=== PATIENT | male | born 1965 | race Caucasian/White ===

== ENCOUNTER 2019-02-28 03:06 | Emergency (ER) | payer BC ==
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
[~2019-02-28 03:06] MED LIST: Bacitracin Oint 1 GM U/D Packet TOP ONE; Diphtheria,Pertussis(Acell),Tetanus Vaccine 0.5 ML SDV IM ONE; Lidocaine 1% 30 ML SDV INJECT ONE
[2019-02-28] MEDS ORDERED: Acetaminophen 325 MG Tab PO ONE (03:55)
== END 2019-02-28 04:11 | disposition home or self-care (01) ==
LOC: DL.ED 03:06
DX: S01.112A Laceration without foreign body of left eyelid and periocular area, initial encounter (principal); Y08.89XA Assault by other specified means, initial encounter; Y93.89 Activity, other specified; Y92.89 Other specified places as the place of occurrence of the external cause
CPT/HCPCS: 12011; 70450; 70486; 72125; 90471; 90715; 99284; A9270; J2001; 12001